=== PATIENT | male | born 1985 | race Caucasian/White ===

== ENCOUNTER 2021-02-23 17:15 | Emergency (ER) | payer BC ==
[~2021-02-23] VITALS: Ht 185.4 cm; Wt 98.0 kg
--- NOTE | 2021-02-23 17:40 | PHYS DOC ---
General Adult EDM: Chief Complaint: SHORTNESS OF BREATH HPI: HPI: Patient is a 35 year old male who presents with shortness of breath, cough, nasal drainage and congestion and some wheezing that started when he woke up today. He got the second Moderna shot yesterday. He does have a history of seasonal allergies and asthma. He states he has not had any use his albuterol inhaler for quite some time and his is very outdated. He states that he does take Zyrtec daily. He states that his allergies usually get pretty bad around this time of year. He states that his chest feels tight and he is coughing and having a lot of postnasal drainage. Patient denies smoking. He has tachycardic upon arrival to the ER with a heart rate in the 1 teens. He is 98% on room air. Speaks in full clear sentences. (KEY CUMMINGS APRN) Review of Systems: Review of Systems: Constitutional: Denies fever or chills. [] Eyes: Denies change in visual acuity. [] HENT: + nasal congestion, + postnasal drip or denies sore throat. [] Respiratory: + cough or +shortness of breath. [] Cardiovascular: +chest tightness or denies edema. [] GI: Denies abdominal pain, nausea, vomiting, bloody stools or diarrhea. [] : Denies dysuria. [] Musculoskeletal: Denies back pain or joint pain. [] Integument: Denies rash. [] Neurologic: Denies headache, focal weakness or sensory changes. [] Endocrine: Denies polyuria or polydipsia. [] Lymphatic: Denies swollen glands. [] Psychiatric: Denies depression or anxiety. [] (KEY CUMMINGS [facility] NURSE) Heart Score: C/O Chest Pain: N/A Risk Factors: Risk Factors: DM, Current or recent (<one month) smoker, HTN, HLP, family history of CAD, obesity. Risk Scores: Score 0 - 3: 2.5% MACE over next 6 weeks - Discharge Home Score 4 - 6: 20.3% MACE over next 6 weeks - Admit for Clinical Observation Score 7 - 10: 72.7% MACE over next 6 weeks - Early Invasive Strategies (KEY CUMMINGS APRN) Physical Exam: PE: Constitutional: Well developed, well nourished, no acute distress, non-toxic appearance. [] HENT: Normocephalic, atraumatic, bilateral external ears normal, oropharynx moist, no oral exudates, nose normal. [] Eyes: PERRLA, EOMI, conjunctiva normal, no discharge. [] Neck: Normal range of motion, no tenderness, supple, no stridor. [] Cardiovascular:Heart rate regular rhythm, no murmur [] Lungs & Thorax: Bilateral breath sounds clear but tight to auscultation [] Abdomen: Bowel sounds normal, soft, no tenderness, no masses, no pulsatile masses. [] Skin: Warm, dry, no erythema, no rash. [] Back: No tenderness, no CVA tenderness. [] Extremities: No tenderness, no cyanosis, no clubbing, ROM intact, no edema. [] Neurologic: Alert and oriented X 3, normal motor function, normal sensory function, no focal deficits noted. [] Psychologic: Affect normal, judgement normal, mood normal. [] (KEY CUMMINGS APRN) EKG: EK and read by Dr Santoro as Sinus Rhythm, no STEMI [] (KEY CUMMINGS APRN) Radiology/Procedures: Radiology/Procedures: [] Impression: [facility] [address] [place], [place] [id number] IMAGING REPORT Signed PATIENT: KRISTINA TAPIA ACCOUNT: [id number] : 1985 LOCATION: ER AGE: 35 SEX: M EXAM STATUS: REG ER ORD. PHYSICIAN: KEY CUMMINGS APRN REASON: SHORTNESS OF BREATH PROCEDURE: PORTABLE CHEST 1V AP chest. HISTORY: Short of breath AP view was taken of the chest. Lungs are free of infiltrates. Heart is normal in size. There is no pleural effusion. IMPRESSION: 1. No acute chest disease. Electronically signed by: Nick Dickey MD (02/23/2021 5:51 PM) [facility] DICTATED and SIGNED BY: NICK DICKEY MD DATE: 02/23/21 [id number] (KEY CUMMINGS APRN) Course & Med Decision Making: Course & Med Decision Making Pertinent Labs and Imaging studies reviewed. (See chart for details) See HPI. Alert and oriented x4. Denies any kind of pain. Denies dizziness, headache, syncope, fever, abdominal pain, nausea, vomiting, diarrhea, body aches, neck pain, back pain, focal weakness, numbness or tingling, vision change. Lungs bilaterally are clear but tight. No wheezing was heard. Speaks in full clear sentences but coughing often. Skin pink warm and dry. Patient states he is feeling much better after the breathing treatment, Solu- Medrol, Pepcid, Benadryl. Patient will get a second breathing treatment before being discharged home. Heart rate has come down to 98. Patient remains at 98% on room air. Lungs are sounding clear. [] (KEY CUMMINGS APRN) Dragon Disclaimer: Dragon Disclaimer: This electronic medical record was generated, in whole or in part, using a voice recognition dictation system. (KEY CUMMINGS APRN) Departure Departure Impression: Primary Impression: Asthma exacerbation Qualified Codes: J45.31 - Mild persistent asthma with (acute) exacerbation Disposition: HOME / SELF CARE / HOMELESS Condition: STABLE Patient Instructions: Asthma, Acute Bronchospasm, Asthma, Adult Additional Instructions: Follow-up with your primary care provider. Take your allergy medicine. Use all medications as prescribed. If you begin having severe shortness of breath or chest pain return to emergency room. Scripts Albuterol Sulfate (PROAIR HFA INHALER) 8.5 Gm Hfa.aer.ad 1 PUFF INH PRN Q6HRS PRN for SHORTNESS OF BREATH, #1 EACH 0 Refills Prov: KEY CUMMINGS APRN 02/23/21 Methylprednisolone (MEDROL) 4 Mg Tab.ds.pk 1 PKG PO UD, #1 PKG Prov: KEY CUMMINGS APRN 02/23/21 KEY CUMMINGS APRN Feb 23, 2021 17:40 MARKOS SANTORO DO Feb 25, 2021 13:12
[2021-02-23] MEDS ORDERED: ALBUTEROL SULFATE 2.5 MG/3 ML NEBU. NEB ONE ×2 (17:45→18:30)
[2021-02-23] MEDS ORDERED: FAMOTIDINE 20 MG/2 ML VIAL IVP ONE (17:45)
[2021-02-23] MEDS ORDERED: diphenhydrAMINE 50 MG/ML VIAL IVP ONE (17:45)
[2021-02-23] MEDS ORDERED: methylPREDNISolone SOD SUCC PF 125 MG/2 ML VIAL. IV ONE (17:45)
--- NOTE | 2021-02-23 17:53 | RAD ---
AP chest. HISTORY: Short of breath AP view was taken of the chest. Lungs are free of infiltrates. Heart is normal in size. There is no p leural effusion. IMPRESSION: 1. No acute chest disease. Electronically signed by: Nick Dickey MD (02/23/2021 5:51 PM) [facility]
[2021-02-23] MEDS ORDERED: METH4TAB2 PO (18:28)
[2021-02-23] MEDS ORDERED: ALBU2.5V8 INH (18:28)
--- NOTE | 2021-02-23 18:35 | EKG ---
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
[2021-02-23 19:02] VITALS: BP 150/81
== END 2021-02-23 19:04 | disposition home or self-care (01) ==
LOC: ER 17:15
DX: J45.31 Mild persistent asthma with (acute) exacerbation (principal)
CPT/HCPCS: 71045; 93005; 94640; 96374; 96375; 99285; J1200; J2930; J3490; J7613